=== PATIENT | female | born 1985 | race Caucasian/White ===

== ENCOUNTER 2016-09-09 11:11 | Emergency (ER) | payer BC, OTHER ==
[~2016-09-09] VITALS: Ht 160 cm; Wt 77.1 kg
[~2016-09-09 11:11] MED LIST: PRENATAL VITAMI1 T10 PO
--- NOTE | 2016-09-09 11:31 | NUR ---
Patient ambulated to bed 06.
[2016-09-09 11:35] VITALS: BP 122/72
--- NOTE | 2016-09-09 11:35 | NUR ---
AAO, COOPERATIVE PT BEING ASSESS BY DR FERNANDEZ AT BEDSIDE
--- NOTE | 2016-09-09 11:35 | NUR ---
Dr. Owen evaluating patient at bedside.
[2016-09-09] MEDS ORDERED: diphenhydrAMINE 50 MG CAP PO ONE (11:40)
[2016-09-09] MEDS ORDERED: DEXAMETHASONE 4 MG TAB PO ONE (11:40)
[2016-09-09] MEDS ORDERED: METOCLOPRAMIDE 10 MG TAB PO ONE (11:40)
--- NOTE | 2016-09-09 11:40 | NUR ---
31 YO FEMALE BIB SELF FOR HEADACHE FOR 3 DAYS, DENIES TRAUMA, NO VOMITING OR DIARRHEA ; SKIN IS PINK/WARM/DRY; AAOX4 WITH EVEN AND STEADY GAIT; LUNGS CLEAR BL; HR EVEN AND REGULAR; PT DENIES ANY FEVER, CP, SOB, OR COUGH AT THIS TIME; PATIENT STATES PAIN OF 8/10 AT THIS TIME; VSS; PATIENT POSITIONED FOR COMFORT; HOB ELEVATED; BEDRAILS UP X2; BED DOWN. ER MD MADE AWARE OF PT STATUS.
[2016-09-09 12:35] VITALS: BP 122/72
--- NOTE | 2016-09-09 12:35 | NUR ---
Patient discharged with v/s stable. Written and verbal after care instructions given and explaineD; Patient alert, oriented and verbalized understanding of instructions. Ambulatory with steady gait. All questions addressed prior to discharge. ID band removed. Patient advised to follow up with PMD. Rx of MOTRIN, ZOFRAN given. Patient educated on indication of medication including possible reaction and side effects. Opportunity to ask questions provided and answered.
== END 2016-09-09 12:35 | disposition home or self-care (01) ==
LOC: MED 11:11
DX: R51 Headache (principal)
CPT/HCPCS: 99283; J8597; Q0163

== ENCOUNTER 2022-08-18 06:20 | Emergency (ER) | payer OTHER ==
[~2022-08-18] VITALS: Ht 162.6 cm; Wt 85.3 kg
[~2022-08-18 06:20] MED LIST changes: +PREN-385 PO; -PRENATAL VITAMI1 T10 PO
[2022-08-18 06:27] VITALS: BP 132/83
--- NOTE | 2022-08-18 06:34 | NUR ---
Patient taken to Chair B.
--- NOTE | 2022-08-18 06:39 | NUR ---
Dr. Jacobson examining patient.
[2022-08-18] MEDS ORDERED: OMEP20EC11 PO (06:46)
[2022-08-18] MEDS ORDERED: [UNRECOGNIZED DRUG - CODE] PO (06:46)
[2022-08-18 06:52] VITALS: BP 132/83
--- NOTE | 2022-08-18 06:52 | NUR ---
Patient discharged with v/s stable. Written and verbal after care instructions given and explained. Patient alert, oriented and verbalized understanding of instructions. Ambulatory with steady gait. All questions addressed prior to discharge. ID band removed. Patient advised to follow up with PMD. Rx of Tums X and Omeprazole given. Patient educated on indication of medication including possible reaction and side effects. Opportunity to ask questions provided and answered.
== END 2022-08-18 06:52 | disposition home or self-care (01) ==
LOC: MED 06:20
DX: K21.9 Gastro-esophageal reflux disease without esophagitis (principal); I10 Essential (primary) hypertension; Z79.899 Other long term (current) drug therapy
CPT/HCPCS: 99282

== ENCOUNTER 2022-12-27 17:58 | Emergency (ER) | payer OTHER ==
[~2022-12-27] VITALS: Ht 162.6 cm; Wt 81.6 kg
[~2022-12-27 17:58] MED LIST changes: +OMEP20EC11 PO; +[UNRECOGNIZED DRUG - CODE] PO
[2022-12-27 18:02] VITALS: BP 123/69
--- NOTE | 2022-12-27 18:08 | NUR ---
PT AMBULATORY TO BED 09.
--- NOTE | 2022-12-27 18:35 | NUR ---
PT. IS IN ROOM 9, EDUCATED THE PATIENT ABOUT WAITING FOR MD, THE CARDIAC WORKUP, PATIENT HAS NO QUESTIONS NOTED AT THE MOMENT, PATIENT STATES SHE IS HAVING CHEST PAIN 5/10 FEELING HEAVINESS, HOWEVER NOT RADIATING AT THE MOMENT, PATIENT DOES NOT WANT PAIN MEDICATION TO ALLEVIATE PAIN, WILL CONT. TO MONITOR VITAL SIGNS AND INFORM MD SIN FOR FURTHER DETAILS
--- NOTE | 2022-12-27 18:48 | NUR ---
DR JORDAN IS AWARE AND IS AT BEDSIDE
[2022-12-27 19:26] LABS: BASOPHILS # (AUTO) 0.1 K/uL (0.00-0.22); BASOPHILS % (AUTO) 0.4 % (0.0-2.0); EOSINOPHILS # (AUTO) 0.3 K/uL (0-0.4); EOSINOPHILS % (AUTO) 2.4 % (0.0-4.0); HEMATOCRIT 38.8 % (36-48); HEMOGLOBIN 12.9 g/dL (12.0-16.0); LYMPHOCYTES # (AUTO) 1.9 K/uL (2.5-16.5); LYMPHOCYTES % (AUTO) 13.3 % (20.5-51.1); MEAN CORPUSCULAR HEMOGLOBIN 29 pg (27-31); MEAN CORPUSCULAR HGB CONC 33 g/dL (33-37); MEAN CORPUSCULAR VOLUME 87.3 fL (80-94); MONOCYTES # (AUTO) 0.7 K/uL (0.8-1.0); NEUTROPHILS # (AUTO) 11.1 K/uL (1.8-7.7); NEUTROPHILS % (AUTO) 78.9 % (42.2-75.2); PLATELET COUNT (AUTO) 358 K/uL (140-450); RED BLOOD CELL COUNT(AUTO) 4.44 MIL/uL (4.20-5.40)
[2022-12-27 19:42] LABS: ANION GAP 11.8 (8-16); ASPARTATE AMINOTRANSFERASE 36 U/L (15-37); CHLORIDE 101 mmol/L (98-107); CREATININE 0.9 mg/dL (0.6-1.3); GFR ARICAN-AMERICAN 90 mL/min (>90); GLUCOSE 108 mg/dL (74-106); POTASSIUM 3.8 mmol/L (3.5-5.1); SODIUM SERUM 137 mmol/L (136-145); TOTAL BILIRUBIN 0.3 mg/dL (0.0-1.0); UREA NITROGEN, BLOOD 12 mg/dL (7-18)
--- NOTE | 2022-12-27 19:52 | NUR ---
UA TAKEN TO LAB
--- NOTE | 2022-12-27 19:52 | NUR ---
XRAY AT BEDSIDE FOR PORTABLE IMAGE
[2022-12-27] MEDS ORDERED: NAPR-1704 PO (21:51)
[2022-12-27] MEDS ORDERED: ALBU0.0912 INH (21:52)
[2022-12-27 22:18] VITALS: BP 114/72
--- NOTE | 2022-12-27 22:20 | NUR ---
Patient discharged with v/s stable. Written and verbal after care instructions given and explained. Patient alert, oriented and verbalized understanding of instructions. Ambulatory with steady gait. All questions addressed prior to discharge. ID band removed. Patient advised to follow up with PMD. Rx of albuterol and naproxen given. Patient educated on indication of medication including possible reaction and side effects. Opportunity to ask questions provided and answered.pt left with her [facility]
== END 2022-12-27 22:15 | disposition home or self-care (01) ==
LOC: MED 17:58
DX: R07.89 Other chest pain (principal); D72.829 Elevated white blood cell count, unspecified; Z79.899 Other long term (current) drug therapy
CPT/HCPCS: 36415; 71045; 80053; 81025; 84484; 85025; 85379; 93005; 99285; Q0092